=== PATIENT | female | born 1965 | race Caucasian/White ===

== ENCOUNTER → 2024-10-30 19:34 | Outpatient (REF) | payer OTHER, SELFPAY | LOC: WDC 19:34 | PROVIDERS: ATTENDING PHYSICIAN Family Medicine | DX: Z12.31 Encounter for screening mammogram for malignant neoplasm of breast (principal) | CPT/HCPCS: 77063; 77067 ==

== ENCOUNTER → 2025-02-27 13:08 | Outpatient (REF) | payer OTHER, SELFPAY | LOC: DHSLP 13:08 | PROVIDERS: ATTENDING PHYSICIAN Family Medicine; FAMILY PHYSICIAN Internal Medicine Cardiovascular Disease | DX: G47.33 Obstructive sleep apnea (adult) (pediatric) (principal) | CPT/HCPCS: 95800 ==